=== PATIENT | male | born 1990 | race Two or more races ===

== ENCOUNTER 2018-12-22 13:11 | Emergency (ER) | payer SELFPAY ==
[2018-12-22] MEDS ORDERED: Penicillin G Benzathine 1,200,000 Units/2 ML Syringe IM ONE (13:25)
--- NOTE | 2018-12-22 13:32 | EDM.PDOC ---
ED HPI GENERAL MEDICAL PROBLEM - General Chief Complaint: ENT Problem Stated Complaint: THROAT HURTS Time Seen by Provider: 12/22/18 13:22 - History of Present Illness INITIAL COMMENTS - FREE TEXT/NARRATIVE: HISTORY AND PHYSICAL: History of present illness: Patient 28-year-old male presents concern sore throat and fever 3 days he denies nausea vomiting shortness of breath chest pain or other concern he has been able take fluids. Review of systems: As per history of present illness and below otherwise all systems reviewed and negative. Past medical history: As per history of present illness and as reviewed below otherwise noncontributory. Surgical history: As per history of present illness and as reviewed below otherwise noncontributory. Social history: No reported history of drug or alcohol abuse. Family history: As per history of present illness and as reviewed below otherwise noncontributory. Physical exam: HEENT: Atraumatic, normocephalic, pupils reactive, negative for conjunctival pallor or scleral icterus, mucous membranes moist, throat injected with 2+ tonsils and pustular exudates is no peritonsillar fullness uvular deviation trismus or hot potato voice, neck supple, nontender, trachea midline. Lungs: Clear to auscultation, breath sounds equal bilaterally, chest nontender. Heart: S1S2, regular, negative for clicks, rubs, or JVD. Abdomen: Soft, nondistended, nontender. Negative for masses or hepatosplenomegaly. Negative for costovertebral tenderness. Pelvis: Stable nontender. Genitourinary: Deferred. Rectal: Deferred. Extremities: Atraumatic, negative for cords or calf pain. Neurovascular unremarkable. Neuro: Awake, alert, oriented. Cranial nerves II through XII unremarkable. Cerebellum unremarkable. Motor and sensory unremarkable throughout. Exam nonfocal. Diagnostics: Deferred Therapeutics: Bicillin LA 1.2 million units IM Impression: #1 exudative pharyngitis Definitive disposition and diagnosis as appropriate pending reevaluation and review of above. throat Pain Score (Numeric/FACES): 10 - Related Data Allergies Allergy/AdvReac Type Severity Reaction Status Date / Time No Known Allergies Allergy Verified 12/22/18 13:20 Home Meds: Home Meds . [No Known Home Meds] 12/22/18 [History] ED ROS GENERAL - Review of Systems Review Of Systems: ROS reveals no pertinent complaints other than HPI. ED EXAM, GENERAL - Physical Exam Exam: See Below (See dictation) Course - Vital Signs Last Recorded V/S: Last Vital Signs Temp 36.6 C 12/22/18 13:21 Pulse 130 H 12/22/18 13:21 Resp 18 12/22/18 13:21 BP 126/78 12/22/18 13:21 Pulse Ox 96 12/22/18 13:21 - Orders/Labs/Meds Meds: Medications Discontinued Medications Generic Name Dose Route Start Last Admin Trade Name Jonel PRN Reason Stop Dose Admin Penicillin G Benzathine 1.2 millunits 12/22/18 13:25 Bicillin L-A IM 12/22/18 13:26 ONETIME ONE Departure - Departure Time of Disposition: 13:30 Disposition: Home, Self-Care 01 Condition: Good Clinical Impression: Exudative pharyngitis - Discharge Information Referrals: PCP,None [Primary Care Provider] - Additional Instructions: The following information is given to patients seen in the emergency department who are being discharged to home. This information is to outline your options for follow-up care. We provide all patients seen in our emergency department with a follow-up referral. The need for follow-up, as well as the timing and circumstances, are variable depending upon the specifics of your emergency department visit. If you don't have a primary care physician on staff, we will provide you with a referral. We always advise you to contact your personal physician following an emergency department visit to inform them of the circumstance of the visit and for follow-up with them and/or the need for any referrals to a consulting specialist. The emergency department will also refer you to a specialist when appropriate. This referral assures that you have the opportunity for followup care with a specialist. All of these measure are taken in an effort to provide you with optimal care, which includes your followup. Under all circumstances we always encourage you to contact your private physician who remains a resource for coordinating your care. When calling for followup care, please make the office aware that this follow-up is from your recent emergency room visit. If for any reason you are refused follow-up, please contact the [facility] emergency department at and asked to speak to the emergency department charge nurse. [facility] [address] [place], [place] [id number] Motrin/Tylenol as directed push fluids follow-up primary care as needed as discussed return as needed as discussed
== END 2018-12-22 14:13 | disposition home or self-care (01) ==
LOC: MW.ED 13:11
DX: J02.9 Acute pharyngitis, unspecified (principal)
CPT/HCPCS: 96372; 99282; J0561

== ENCOUNTER 2021-04-23 11:53 | Emergency (ER) | payer OTHER ==
[2021-04-23] MEDS ORDERED: Diphtheria,Pertussis(Acell),Tetanus Vaccine 0.5 ML Syringe IM ONE (12:35)
[2021-04-23] MEDS ORDERED: Diphtheria,Pertussis(Acell),Tetanus Vaccine 0.5 ML Syringe ONE (12:37)
[2021-04-23] MEDS ORDERED: Bacitracin Oint 1 GM U/D Packet TOP ONE (12:42)
--- NOTE | 2021-04-23 13:08 | EDM.PDOC ---
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 The patient states that he was at work when he was cutting some meat and cut the skin off his right thumb fingertip. He states that there was a little bit of bleeding but he placed it in a water bath with ice and it stopped. He came to the emergency department here for evaluation. He denies any pain, numbness, tingling, weakness he denies any decreased range of motion of his right thumb. He states that he is right- handed. He does not know if his tetanus is up-to-date. He denies any other symptoms REVIEW OF SYSTEMS: Skin: Positive for skin avulsion of the right thumb MSK: Denies joint pain Neurological: Denies numbness, tingling, weakness PAST MEDICAL HISTORY: As per history of present illness and as reviewed below otherwise noncontributory. SURGICAL HISTORY: As per history of present illness and as reviewed below otherwise noncontributory. SOCIAL HISTORY: As per history of present illness and as reviewed below otherwise noncontributory. FAMILY HISTORY: As per history of present illness and as reviewed below otherwise noncontributory. EXAMINATION OF ORGAN SYSTEMS/BODY AREAS: Constitutional: Blood pressure was 118/74, heart rate 71, respiratory 16 with an oxygen saturation 97% on room air. Temperature 36.6 General: Overall well-appearing man who is in no acute distress Psychiatric: Appropriate mood and affect. Eyes: No scleral icterus or conjunctival erythema Cardiovascular: Regular, rate, and rhythm. No gallops, murmurs, or rubs. Bilateral upper extremity pulses symmetric and intact. Capillary refill of the distal right thumb is intact. No active bleeding. Respiratory: Lungs clear to auscultation bilaterally. No wheezes, rales, or rhonchi. Musculoskeletal: The patient is able to fully flex and extend his right thumb and is able to make an O and touch all of his other fingers. No deformity. No anatomical snuffbox tenderness Skin: There is a distal right thumb skin avulsion with some fat exposed. No bone is exposed. Neurological: Alert, GCS 15 distal sensation is intact MEDICAL DECISION MAKING AND COURSE IN THE ED WITH INTERPRETATION/REVIEW OF DIAGNOSTIC STUDIES: This is a 30-year-old man without any significant past medical history who comes to the emergency department with dominant hand thumb skin avulsion without any bone exposed. At this time I did discuss with the patient that typically we just place a nonadherent gauze and keep the area clean and follow-up with hand surgery. I did give the patient strict return precautions. However before discharge I would like to speak to hand surgery and obtain an x-ray. He is currently in no pain therefore no pain medication was administered. We will update the patient's tetanus The radiological images were viewed by myself along with reading the report from the radiologist. Right thumb x-ray does not reveal any acute fracture or abnormality. There is a soft tissue defect of the distal fingertip. After imaging I did contact Dr. Loja at [facility] in [place] and he recommended a nonadherent gauze bandage and it needs to be clean every day and follow-up in 1 week. I did discuss this with the patient and he was amenable to discharge at this time. He was given strict return precautions DISPOSITION: The patient was discharged home in stable condition. The patient will follow up with Dr. Loja in 1 week CONDITION: Fair PROCEDURES: None FINAL IMPRESSION(S)/DIAGNOSES: 1. Acute right thumb skin avulsion Maxwell Simon M.D. Right Finger-Thumb Pain Score (Numeric/FACES): 5 - Related Data Allergies Allergy/AdvReac Type Severity Reaction Status Date / Time No Known Allergies Allergy Verified 04/23/21 12:32 Home Meds: Home Meds . [No Known Home Meds] 12/22/18 [History] Past Medical History - Past Health History Medical/Surgical History: Denies Medical/Surgical History - Infectious Disease History Infectious Disease History: Reports: None Social & Family History - Family History Family Medical History: No Pertinent Family History - Tobacco Use Tobacco Use Status *Q: Never Tobacco User - Caffeine Use Caffeine Use: Reports: None - Recreational Drug Use Recreational Drug Use: No ED ROS GENERAL - Review of Systems Review Of Systems: See Below ED EXAM, SKIN/RASH Exam: See Below Course - Vital Signs Last Recorded V/S: Last Vital Signs Temp 36.6 C 04/23/21 12:32 Pulse 71 04/23/21 12:32 Resp 16 04/23/21 12:32 BP 118/74 04/23/21 12:32 Pulse Ox 97 04/23/21 12:32 - Orders/Labs/Meds Meds: Medications Discontinued Medications Generic Name Dose Route Start Last Admin Trade Name Freq PRN Reason Stop Dose Admin Bacitracin 1 dose 04/23/21 12:42 04/23/21 13:30 Bacitracin Oint 1 Gm U/D Packet TOP 04/23/21 12:43 1 dose ONETIME ONE Administration Diphtheria/Tetanus/Acell Pertussis 0.5 ml 04/23/21 12:35 04/23/21 12:39 Diphtheria,Pertussis(Acell),Tetanus Vaccine 0.5 Ml Syringe IM 04/23/21 12:36 0.5 ml .ONCE ONE Administration Diphtheria/Tetanus/Acell Pertussis Confirm 04/23/21 12:37 04/23/21 12:41 Diphtheria,Pertussis(Acell),Tetanus Vaccine 0.5 Ml Syringe Administered 04/23/21 12:38 Not Given Dose 0.5 ml .ROUTE .STK-MED ONE Departure - Departure Time of Disposition: 14:19 Disposition: Home, Self-Care 01 Condition: Fair Clinical Impression: Avulsion of skin of thumb without complication - Discharge Information *PRESCRIPTION DRUG MONITORING PROGRAM REVIEWED*: No *COPY OF PRESCRIPTION DRUG MONITORING REPORT IN PATIENT MILDRED: No Instructions: Skin Tear, [id number], Deep Skin Avulsion Referrals: PCP,None [Primary Care Provider] - Forms: ED Department Discharge Additional Instructions: Gabriela fuiste evaluado de forma emergente. En joyce momento tiene rakesh avulsin de mojica pulgar derecho en la yema del dedo. [place] no se puede coser. Por lo general, estos se curan con el tiempo. Le recomiendo que lave esta zurdo y la mantenga limpia y coloque un apsito no adherente sobre myles. Si tiene algn sangrado que no se detiene, drenaje de pus o cualquier inquietud, puede regresar al departamento de emergencias. De lo contrario, realice un seguimiento con rakesh ciruga de mano en [facility]. Comunquese con el nmero que aparece a continuacin y programe rakesh uziel de aproximadamente 5 a 7 moncada a partir de hoy. Utilice Tylenol de 500 mg a 1000 mg cada 6 horas para aliviar el dolor. Hand Surgery [facility] Hand Surgery 3rd Floor [phone] Se informa al paciente de los resultados de mojica evaluacin y diagnstico y se responden todas las preguntas. Se les ciera instrucciones de yulissa y precauciones de devolucin. El paciente est estable para el yulissa. El paciente afirma que entiende y est de acuerdo con el plan y que volver si sandrine sntomas empeoran o si tiene alguna inquietud nueva. La siguiente informacin se camilo a los pacientes atendidos en el departamento de emergencias que estn siendo dados de yulissa a mojica hogar. Esta informacin es para describir sandrine opciones para la atencin de seguimiento. Proporcionamos a todos los pacientes atendidos en nuestro departamento de emergencias rakesh derivacin de seguimiento. La necesidad de seguimiento, as lali el momento y las circunstancias, varan segn los detalles de mojica visita al departamento de emergencias. Si no tiene un mdico de atencin primaria en el personal, le proporcionaremos rakesh referencia. Siempre le recomendamos que se ponga en contacto con mojica mdico personal despus de rakesh visita al servicio de urgencias para informarle de las circunstancias de la visita y para realizar un seguimiento con l y / o la necesidad de cualquier derivacin a un especialista consultor. El departamento de emergencias tambin lo derivar a un especialista cuando sea apropiado. Esta remisin le asegura que tiene la oportunidad de recibir atencin de seguimiento con un especialista. Todas estas medidas se malathi en un esfuerzo por brindarle rakesh atencin ptima, que incluye moijca seguimiento. En todas las circunstancias, siempre lo alentamos a que se comunique con mojica mdico privado, quien sigue siendo un recurso para coordinar mojica atencin. Cuando llame para recibir atencin de seguimiento, informe al consultorio que joyce seguimiento es de mojica visita reciente a la kathie de emergencias. Si por alguna razn se le niega el seguimiento, comunquese con el Departamento de Emergencias del [facility] al y solicite hablar con la enfermera a cargo del departamento de emergencias. Sepsis Event Note (ED) - Evaluation Sepsis Screening Result: No Definite Risk - Focused Exam Vital Signs: Vital Signs Temp Pulse Resp BP Pulse Ox 04/23/21 12:32 36.6 C 71 16 118/74 97
--- NOTE | 2021-04-23 14:06 | CR ---
Indication: Fingertip injury Technique: Three views right thumb Comparison: None Findings: Bones: Alignment is normal. No fractures or bone lesions. Joint spaces: Unremarkable. Soft tissues: Soft tissue defect of the distal finger tip. Impression: Soft tissue defect of the distal finger tip. No osseous abnormality. Dictated by Caridad Lowry MD @ 04/23/2021 2:03:[address] Caridad Lowry @ Apr 23 2021 2:03PM
== END 2021-04-23 14:41 | disposition home or self-care (01) ==
LOC: MW.ED 11:53
DX: S61.001A Unspecified open wound of right thumb without damage to nail, initial encounter (principal); Z23 Encounter for immunization; W26.8XXA Contact with other sharp object(s), not elsewhere classified, initial encounter; Y99.0 Civilian activity done for income or pay
CPT/HCPCS: 73140-26-F5; 73140-F5; 90471; 90715; 99283; 99283-25